=== PATIENT | male | born 1960 | race Caucasian/White ===

== ENCOUNTER 2021-10-23 23:11 | Inpatient (IN) | payer MEDICARE ==
[~2021-10-23] VITALS: Ht 170.2 cm; Wt 63.4 kg
[~2021-10-23 23:11] MED LIST: ASPIR-LOW81 MG PO; DEPO-TESTOS100 MG/ML IM; Depo-Provera; TOPROL XL 50MG50 MG PO
[2021-10-23 23:46] LABS: BASO # 0.1 K/mm3 (0.0-0.2); BASO % 0.7 % (0.0-2.0); EOS # 0.1 K/mm3 (0.0-0.7); EOS % 1.5 % (0.0-4.0); GRAN % 69.8 % (42.2-75.2); HEMOGLOBIN 12.8 g/dl (13.5-18.0); LYMPH # 1.3 K/mm3 (1.2-3.4); LYMPH % 17.4 % (20.0-51.0); MEAN CELL VOLUME 95 fl (80.0-100.0); MEAN CORPUSCULAR HEMOGLOBIN 33 pg (27-31); MEAN CORPUSCULAR HGB CONC 35 g/dl (33.0-37.0); MEAN PLATELET VOLUME 9.4 fl (7.4-10.4); MONO # 0.7 K/mm3 (0.1-0.6); MONO % 9.5 % (1.7-9.3); PLATELET COUNT 251 K/mm3 (130-400); RED BLOOD COUNT 3.83 M/mm3 (4.20-5.60)
[2021-10-23 23:48] LABS: HEMATOCRIT 36.3 % (42.0-52.0)
[2021-10-23 23:57] LABS: INR 1.1 (0.8-3.0); PROTHROMBIN TIME 12.7 SECONDS (9.7-12.8)
[2021-10-24] VITALS (13 sets, daily range): BP systolic 99–113; BP diastolic 56–70; PULSE 57–78; TEMP 97.5–99.4
[2021-10-24 00:05] LABS: ALBUMIN 3.9 gm/dL (3.4-4.8); BILIRUBIN,TOTAL 0.5 mg/dL (0.2-1.2); CALCIUM 8.5 mg/dL (8.4-10.2); CREATININE, serum 1.13 mg/dL (0.72-1.25); POTASSIUM 3.8 mmol/L (3.5-4.5); TOTAL PROTEIN 6.2 gm/dL (6.2-8.1)
--- NOTE | 2021-10-24 03:30 | NUR ---
RECEIVED REPORT FROM ED. ASSUMED CARE. PATIENT BROUGHT TO FLOOR AT 0200. PATIENT ALERT AND ORIENTED, BUT DISPLAYS SOME COGNITIIVE DEFICITS. PATIENT IS A POOR HISTORIAN AND COULD NOT RECALL SPECIFIC INFORMATION. PATIENT HERE FOR LEFT HIP AND LEFT CLAVICLE FRACTURE AFTER FALLING IN THE SHOWER AT HOME. INSERTED A 14 COUDET CATHETER AFTER ATTEMPTING A 16F MOTA. PATIENT TOLERATED WELL AND BAG IS HANGING TO DD. PATIENT ORIENTED TO ROOM AND IS RESTING IN BED WITH CALL LIGHT NEAR.
--- NOTE | 2021-10-24 10:24 | NUR ---
pt to surgery at this time with Paulina STOUT PACU.
--- NOTE | 2021-10-24 10:43 | NUR ---
SW worker met with patient to complete intake. Patient states that he lives with his Mike [phone] in [place] [facility]. was also present during intake and assisted with answering questions with patient's permission. Patient states that he does not utilize a walker nor a cane, and is independent with ADL's patient also states that he does not recieve any outside services such as HH. PCP is Dr. Green and pharmacy is [facility]. Patient states that if he feels better at DC his plan is to return to his home. states that she is appointed as guardian and conservetor, and will bring in documenation for faciity to copy and place in patient's chart. SW will continue to follow. DC plan: home
--- NOTE | 2021-10-24 13:13 | NUR ---
PT TO ROOM 327 PER BED WITH REPORT FROM MARI STOUT PACU @1250. PT IS DROWSEY, EASILY AROUSES TO VERBAL. LUNGS CTA, DRESSING TO LEFT HIP CDI WITH GUAZE AND TEGADERM DISTALLY AND PROXIMAL. SCDS AND TEDS PLACED BILATERALLY POST OP. VSS. AT BEDSIDE. IV FLUIDS PER PUMP.
[2021-10-24 15:08] LABS: MUCOUS Present (NOT PRESENT); PH 5 (5-8); SQUAMOUS EPITHELIAL None Seen /hpf (0-10); URINE APPEARANCE Cloudy (CLEAR/HAZY); URINE BACTERIA Rare /hpf (NONE SEEN); URINE BILIRUBIN Negative (NEGATIVE); URINE BLOOD 3+ (NEGATIVE); URINE CALCIUM OXALATE CRYSTAL Present (NOT PRESENT); URINE COLOR Yellow (YELLOW); URINE GLUCOSE Negative (NEGATIVE); URINE KETONE Negative (NEGATIVE); URINE LEUKOCYTE ESTERASE Trace (NEGATIVE); URINE NITRATE Negative (NEGATIVE); URINE PROTEIN(semi-quant) Negative (NEGATIVE); URINE RBC 20-50 /hpf (0-2); URINE UROBILINOGEN Negative (NEGATIVE)
[2021-10-24 15:42] LABS: COLLECTION METHOD CLEAN CATCH
--- NOTE | 2021-10-24 18:44 | NUR ---
MEDICATED WITH OXYCODONE 5MG PO FOR LEFT HIP PAIN. NOTED BRUISING TO LEFT SHOULDER. IS ALERT AND ORIENTED X3. DRSGS X3 TO LEFT HIP/OUTER LEG. IVF TO RT HAND, INFUSING WITHOUT REDNESS OR SWELLING. HAS TEDS AND SCDS ON. LEFT ARM IN SLING, GOOD CSM OF LEFT HAND.
[2021-10-25 03:31] VITALS: BP 108/61; PULSE 74; TEMP 99.1
--- NOTE | 2021-10-25 04:05 | NUR ---
PT HAS BEEN RESTING WELL. ASKING FOR TYLENOL, MEDICATED WITH SCHEDULED ES TYLENOL AND OXYCODONE 5MG PO NOW.
[2021-10-25] MEDS ORDERED: DEPO-PROVE150 MG/1 M IM (05:08)
[2021-10-25 06:58] VITALS: BP 107/59; PULSE 69; TEMP 99.5
[2021-10-25 07:33] LABS: CALCIUM 7.7 mg/dL (8.4-10.2); CREATININE, serum 0.82 mg/dL (0.72-1.25); POTASSIUM 3.9 mmol/L (3.5-4.5)
[2021-10-25 07:34] LABS: HEMOGLOBIN 9.6 g/dl (13.5-18.0)
--- NOTE | 2021-10-25 08:55 | NUR ---
PT UP TO YOUNG AND RETURNED TO BED WITH THERAPY. DRESSING TO LEFT HIP CDI. PAIN WELL CONTROLLED WITH PO MEDS. IV TO RFA. MOTA TO DD WITH CLEAR YELLOW URINE IN COLLECTION BAG.
[2021-10-25 11:12] VITALS: BP 103/63; PULSE 80; TEMP 99.2
--- NOTE | 2021-10-25 13:48 | NUR ---
SHUBHAM met with pt, son present who informed SW that mother is DPOA-HC and father can answer questions. SHUBHAM called DPAO-HC , Mike [phone]. She reports her is independent on all ADLS and does not use any DME. The pt enjoys walks. The pt however has a brain injury and cannot remember things. She reports he is safe to be home alone, however by his choice he will not open home door or answer phone calls. She reports he gets his medications from [facility] . SHUBHAM informed of PT michelle and they are recommending HH therapy. SW will leave a list of options from medicare.gov compare her in his room and she will go over the list and informed next SW on duty of her choice. DC: Home with HH therapy.
[2021-10-25 15:16] VITALS: BP 106/63; PULSE 61; TEMP 98.3
[2021-10-25 19:31] VITALS: BP 115/61; PULSE 103; TEMP 98.4
--- NOTE | 2021-10-25 21:24 | NUR ---
PT TAKES HS MEDS WITHOUT PROBLEM. PT HAD MOTA DC'D AT 1600, NO URGE TO VOID AT THIS TIME. PT IS ALERT AND ORIENTED X3, AT TIMES CONVERSATION RAMBLES. HAS INT TO RT HAND, FLUSHES WELL. HAS BRUISING TO LEFT SHOULDER, ARM IN SLING. HAS DRSGS X3 TO LEFT HIP/OUTER LEG, D/I. REPORTS PAIN 6/10, SCHEDULED ES TYLENOL GIVEN.
[2021-10-25 23:51] VITALS: BP 116/62; PULSE 103; TEMP 98.8
--- NOTE | 2021-10-26 03:00 | NUR ---
PT UP TO VOID, NO BM. BLADDER SCANNED AFTER RETURNING TO BED, 220CC IN BLADDER. PT REPORTS URINATING IN BATHROOM. GAIT STEADY WITH 1 ASSIST AND TULIO WALKER, DID REQUIRE 2 ASSIST FROM RISING FROM SHORT TOILET. BED ALARM ON.
[2021-10-26 03:26] VITALS: BP 132/69; PULSE 80; TEMP 97.9
[2021-10-26 06:58] LABS: HEMATOCRIT 26.3 % (42.0-52.0); HEMOGLOBIN 9.1 g/dl (13.5-18.0)
[2021-10-26 07:13] LABS: CALCIUM 8.3 mg/dL (8.4-10.2); CREATININE, serum 0.8 mg/dL (0.72-1.25); POTASSIUM 3.8 mmol/L (3.5-4.5)
[2021-10-26 07:24] VITALS: BP 108/61; PULSE 86; TEMP 98.9
--- NOTE | 2021-10-26 12:01 | NUR ---
First visit from the cake press operator helper. No needs right now.
[2021-10-26] MEDS ORDERED: TYLENOL 500MG500 MG PO (12:12)
[2021-10-26] MEDS ORDERED: ASPI325T6 PO (12:12)
[2021-10-26] MEDS ORDERED: OSCAL 500 TAB500 MG PO (12:13)
[2021-10-26] MEDS ORDERED: ROXICODONE 55 MG/TAB PO (12:13)
[2021-10-26] MEDS ORDERED: VITAMIN C500 MG PO (12:14)
[2021-10-26] MEDS ORDERED: MULTI VITAMINS1 TAB PO (12:14)
[2021-10-26] MEDS ORDERED: MIRALAX PA17 GM/Dose PO (12:14)
--- NOTE | 2021-10-26 12:28 | NUR ---
Optometric Aide followed up with patient's who advised she does not feel she can care for patient at home in his current condition. SW advised that Hospitalist put in a consult for IPR and patient's is agreeable to this. SHUBHAM collaborated with Annie, IPR Director who advised they can accept today. Discharge Plan: IPR
--- NOTE | 2021-10-26 15:31 | NUR ---
Patient transferring to [facility], he will be going into room 340, his is present and verbalized understanding of care, I will remain his primary nurse untill 190
== END 2021-10-26 15:32 | DRG 481 ==
LOC: COL.ER 23:11 → SURG 10-24 01:23
PROVIDERS: Internal Medicine; Orthopaedic Surgery; Physician Assistant; ADMIT Student in an Organized Health Care Education/Training Program
PROC: 0QS734Z Reposition Left Upper Femur with Internal Fixation Device, Percutaneous Approach (ICD-10-PCS; principal; 2021-10-24 10:30)
DX: S72.142A Displaced intertrochanteric fracture of left femur, initial encounter for closed fracture (principal); D62 Acute posthemorrhagic anemia; S42.022A Displaced fracture of shaft of left clavicle, initial encounter for closed fracture; I10 Essential (primary) hypertension; W18.30XA Fall on same level, unspecified, initial encounter; Y93.89 Activity, other specified; Y92.002 Bathroom of unspecified non-institutional (private) residence as the place of occurrence of the external cause; Z87.820 Personal history of traumatic brain injury; Z23 Encounter for immunization
CPT/HCPCS: 99223-AI; 99232-AI; 99239; C1713; J0690; J1100; J1170; J2250; J2270; J2370; J2405; J2704; J2795; J3010

== ENCOUNTER 2021-10-26 14:42 | Inpatient (IN) | payer MEDICARE ==
[~2021-10-26] VITALS: Ht 170.2 cm; Wt 65.2 kg
[~2021-10-26 14:42] MED LIST changes: +ASPI325T6 PO; +DEPO-PROVE150 MG/1 M IM; +MIRALAX PA17 GM/Dose PO; +MULTI VITAMINS1 TAB PO; +OSCAL 500 TAB500 MG PO; +ROXICODONE 55 MG/TAB PO; +TYLENOL 500MG500 MG PO; +VITAMIN C500 MG PO
[2021-10-26 18:57] VITALS: BP 118/65; PULSE 90; TEMP 98
--- NOTE | 2021-10-26 22:54 | NUR ---
Received report from day shift. Patient here for fracture of left femur and left clavicle. Patient alert and oriented x3. Patient complains of pain 10/10 and requests pain medication. Assessment performed. VSS. Patient in bed with call light near.
--- NOTE | 2021-10-27 01:18 | NUR ---
Patient ambulated to bathroom x2. Complains of pain /10, refuses pain medication. Will continue to [facility].
[2021-10-27 05:39] VITALS: BP 123/67; PULSE 89; TEMP 98.7
--- NOTE | 2021-10-27 15:11 | NUR ---
Director Food And Beverage met with patient to discuss discharge planning. Patient lives in [place] with his , Mike (ph#[phone]) [address] sees Dr. Arevalo for primary care. Patient obtains medications from [facility] and normally does not use any DME. Patient states he is normally independent with ADLS. SW will continue to follow up for discharge planning needs.
[2021-10-27 16:30] VITALS: BP 114/63; PULSE 80; TEMP 98.2
--- NOTE | 2021-10-27 19:50 | NUR ---
Pt. sitting up in chair. Pt. is A&OX3, assessment complete. Sling to lt. arm. Pt. reports pain to lt. hip at a 3 on pain scale. Pt. denies further needs, call light within reach.
[2021-10-28 05:54] VITALS: BP 124/54; PULSE 89; TEMP 98.1
--- NOTE | 2021-10-28 07:45 | NUR ---
SHIFT REPORT RECEIVED FROM HOSPITAL AIDES AND ASSISTANTS TEACHER RN JACE. PATIENT AWAKE AND SITTING IN BEDSIDE CHAIR WITH BOTH FEET ELEVATED. CALL LIGHT IS WITHIN HIS REACH. HE DENIES PAIN CURRENTLY. DENIES FURTHER NEEDS AT THIS TIME
--- NOTE | 2021-10-28 10:30 | NUR ---
Patient showered this morning with OT. Gauze/tegaderm dressing peeling away from incision left hip. Unable to find dsg change orders in paper chart or EMR. Called [facility], Dr. Vargas and left a voice mail with his nurse to call IPR
--- NOTE | 2021-10-28 13:45 | NUR ---
Hog Trader met with patient to review and provide copy of team conference notes. SW advised patient that tentative discharge date has been set for 11/05/21. Patient is agreeable to this. SHUBHAM contacted patient's , Mike to provide update. SHUBHAM also scheduled family meeting for Tuesday at 0930.
--- NOTE | 2021-10-28 18:14 | NUR ---
Callback received from [facility] nurse. Per jerrell Ayala to change dressing on POD#3. Jerrell to apply a simple dressing if still draining or bleeding. Patient with 3 left hip incisions. Medial incision was noted to have gauze that previously placed adhered to the incision. This nurse flushed incision with 30mL sterile water but was unable to remove the remnants of gauze dressing. Clean gauze dressing re-applied and reinforced with tegaderm. Will discuss with Dr. Mays tomorrow. Will pass on to occupational therapy assistant RN for monitoring of site overnight
[2021-10-28 18:17] VITALS: BP 115/70; PULSE 98; TEMP 98.7
--- NOTE | 2021-10-28 19:15 | NUR ---
RECEIVED CHANGE OF SHIFT REPORT FROM DAY SHIFT RN.
[2021-10-29 05:01] VITALS: BP 129/68; PULSE 100; TEMP 99.4
--- NOTE | 2021-10-29 07:18 | NUR ---
CHANGE OF SHIFT REPORT GIVEN TO DAY SHIFT RNMARLO.
--- NOTE | 2021-10-29 07:43 | NUR ---
Shift report received from warehouse shift supervisor RN. Patient resting in chair at bedside. He denies any pain or further needs at this time. Call light is within his reach
--- NOTE | 2021-10-29 14:40 | NUR ---
Admission QIM scores were reviewed by the team. Code of 3 chosen for oral hygiene was determined by team discussion to be the most usual performance for this patient during the assessment period. Code of 3 chosen for toilet hygiene was determined by team discussion to be the most usual performance for this patient during the assessment period. Code of 3 chosen for toileting transfers was determined by team discussion to be the most usual performance for this patient during the assessment period. Code of 3 chosen for shower/bathe self was determined by team discussion to be the most usual performance before interventions for this patient during the assessment period. Code of 3 chosen for upper body dressing was determined by team discussion to be the most usual performance before interventions for this patient during the assessment period. Code of 2 chosen for lower body dressing was determined by team discussion to be the most usual performance for this patient during the assessment period. Code of 3 chosen for sit to lying was determined by team discussion to be the most usual performance before interventions for this patient during the assessment period. Code of 2 chosen for lying to sitting on side of bed was determined by team discussion to be the most usual performance for this patient during the assessment period. Code of 3 for sit to stand was determined by team discussion to be the most usual performance for this patient during the assessment period. Code of 3 for chair/bed to chair transfers was determined by team discussion to be the most usual performance for this patient during the assessment period.--PD Milton
[2021-10-29 17:31] VITALS: BP 102/59; PULSE 87; TEMP 98
--- NOTE | 2021-10-29 19:51 | NUR ---
PT SITTING IN RECLINER. RT ARM SLING IN PLACE. DENIES PAIN. NO NEEDS AT THIS TIME. CALL LIGHT IN REACH. REMINDED PT TO USE CALL LIGHT IF NEEDS UP.
[2021-10-30 03:52] VITALS: BP 106/65; PULSE 86; TEMP 98.9
--- NOTE | 2021-10-30 14:26 | NUR ---
Coffee Bar Attendant participated in patient's family meeting which included patient's , Mike who is at bedside. KAYLYN Valencia Director opened the meeting followed up report from PT/OT/ST on patient's progress and discharge recommendations. Viktorandrés advised they have a good set up at home to include grab bars, a lift chair, and tub transfer bench. Mike plans to visit next week to observe OT session. SHUBHAM advised that tentative discharge date is set for 11/05/2021 and discharge recommendations are Home Health vs Outpatient therapy. SHUBHAM also advised she will assist with securing a randolph walker. SW to follow up on decision between OP and HH.
[2021-10-30 17:20] VITALS: BP 132/69; PULSE 96; TEMP 98.9
--- NOTE | 2021-10-30 21:16 | NUR ---
SITTING IN RECLINER. SEE MAR FOR PAIN MED GIVEN FOR LT SIDED PAIN LEVEL 10
--- NOTE | 2021-10-31 03:04 | NUR ---
BED ALARM SOUNDING. PT GETTING UP BY HIMSELF TO GO TO BR. REMINDED PT TO USE CALL LIGHT FOR ASSIST.
[2021-10-31 04:43] VITALS: BP 128/75; PULSE 74; TEMP 97.7
[2021-10-31 06:29] LABS: MEAN CELL VOLUME 98 fl (80.0-100.0); MEAN CORPUSCULAR HEMOGLOBIN 33 pg (27-31); MEAN CORPUSCULAR HGB CONC 34 g/dl (33.0-37.0); MEAN PLATELET VOLUME 8.5 fl (7.4-10.4); PLATELET COUNT 353 K/mm3 (130-400); RED BLOOD COUNT 3.02 M/mm3 (4.20-5.60); REDCELL DISTRIBUTION WIDTH-CV 12.5 % (11.5-14.5)
[2021-10-31 06:30] LABS: HEMATOCRIT 29.6 % (42.0-52.0)
[2021-10-31 08:03] LABS: EOSINOPHIL 5 % (0-4); LYMPHOCYTE 11 % (20.0-51.0); METAMYELOCYTE 1 % (0-0); NEUTROPHILS 71 % (42.0-75.2); PLATELET ESTIMATE NORMAL (NORMAL)
--- NOTE | 2021-10-31 14:26 | NUR ---
PATIENT STABLE THROUGH OUT THIS SHIFT. FOOD AND FLUID INTAKE VERY GOOD. REQUIRES PAIN MEDICATIONS RARELY. COMPLETES THERAPY WITH NO ISSUES. ABLE TO AMBULATE WELL ON OWN. CONTINENT.
[2021-10-31 18:24] VITALS: BP 125/66; PULSE 85; TEMP 98.6
--- NOTE | 2021-10-31 21:15 | NUR ---
PT SITTING IN RECLINER. DENIES NEED FOR PAIN MED. NO NEEDS AT THIS TIME. SPEECH GARBLED AND VERY FAST AT TIMES. OCCATIONALLY IMPULSIVE. CHAIR ALARM SET. CALL LIGHT IN REACH.
[2021-11-01 05:15] VITALS: BP 134/87; PULSE 103; TEMP 98.4
--- NOTE | 2021-11-01 12:26 | NUR ---
PATIENT RESTING IN CHAIR. NO COMPLAINTS AT THIS TIME. DENIES PAIN THROUGHOUT THE DAY. STATES HE DOESN'T NEED ANYTHING AT THIS TIME. WILL COMTINUE TO MONITOR.
[2021-11-01 15:51] VITALS: BP 107/75; PULSE 86; TEMP 98.6
--- NOTE | 2021-11-01 18:26 | NUR ---
PATIENT HAS BEEN RESTING IN CHAIR ALL DAY. PATIENT HAS BEEN UP TO RESTROOM SEVERAL TIMES TODAY. PATIENT HAS CONSUMED ALL OF HIS MEALS WITHOUT ANY NAUSEA OR ISSUES. PT HAS HAD LITTLE TO NO PAIN AND REQUESTED NO PAIN MEDICATIONS TODAY. PATIENT HAS NO COMPLAINTS OR REQUESTS AT THIS TIME.
--- NOTE | 2021-11-01 21:00 | NUR ---
PT BRETIN RECLINER. DENIES NEEDS .
[2021-11-02 05:24] VITALS: BP 129/75; PULSE 88; TEMP 98.5
--- NOTE | 2021-11-02 06:14 | NUR ---
PT SITTING UP IN RECLINER READY FOR THE MORNING. NO NEEDS NOTED.
--- NOTE | 2021-11-02 08:15 | NUR ---
ASSISTED PT TO BATHROOM AND BACK TO CHAIR. PT SITTING UP IN CHAIR TO EAT BREAKFAST. PT DENIES ANY PAIN OR NEEDS AT THIS TIME. CALL LIGHT IS WITHIN REACH.
--- NOTE | 2021-11-02 15:43 | NUR ---
Assembler Body contacted patient's , Mike to review discharge plan. SW reviewed options for DME and discharge services. Mike believes outpatient therapy would be more beneficial for patient and would like it set up at [facility] on [address]. Mike is also agreeable to have randolph walker ordered from [facility]. SW followed up with patient who is agreeable to the above plan.
[2021-11-02 18:11] VITALS: BP 127/65; PULSE 97; TEMP 97.9
--- NOTE | 2021-11-02 18:34 | NUR ---
PT UP IN CHAIR. PT STATES NO NEEDS AT THIS TIME OR PAIN. CALL LIGHT IS WITHIN REACH.
--- NOTE | 2021-11-02 19:07 | NUR ---
RECEIVED CHANGE OF SHIFT REPORT FROM DAY SHIFT RN. PATIENT UP IN CHAIR WITH EXIT ALARM ON AND CALL LIGHT WITHIN REACH. DENIES ANY NEEDS AT TIME OF REPORT.
[2021-11-03 04:58] VITALS: BP 121/67; PULSE 83; TEMP 98.6
--- NOTE | 2021-11-03 06:47 | NUR ---
CHANGE OF SHIFT REPORT GIVEN TO DAY SHIFT RNs, BRAD.
--- NOTE | 2021-11-03 07:36 | NUR ---
Shift report received from retail shift supervisor RN. Patient is awake and sitting in recliner chair at bedside. Call light is within his reach. He denies further needs at this time
--- NOTE | 2021-11-03 09:12 | NUR ---
Patient pressed call button for assistance with shaving. SBA provided while patient up to sink in room to shave. Lt. hip inicisions x3 remain without drainage/redness. Medial Lt. hip incision remains with gauze remnants that appear to be adhered to incision from ?possible skin glue?.
--- NOTE | 2021-11-03 09:27 | NUR ---
Patient preparing for group therapy this morning. Has completed his morning ADL's independently with SBA. Dr. Mays in to see pt. Lt. hip incision evaluated by Dr. Mays - okay to leave as is. Continue to monitor and gauze should fall off on its own via bathing/showering
--- NOTE | 2021-11-03 15:13 | NUR ---
Patient reports that he had 2 bowel movements yesterday
[2021-11-03 16:29] VITALS: BP 124/73; PULSE 84; TEMP 98.7
--- NOTE | 2021-11-03 19:12 | NUR ---
RECEIVED CHANGE OF SHIFT REPORT FROM DAY SHIFT RNs.
--- NOTE | 2021-11-03 23:32 | NUR ---
PATIENT SLEEPING, DOES NOT WAKE WHEN ROOM ENTERED BY NURSING ON ROUNDS. BREATHING NONLABORED AND EVEN. BED EXIT ALARM ON WITH CALL LIGHT WITHIN REACH.
[2021-11-04 04:51] VITALS: BP 121/68; PULSE 78; TEMP 98.5
--- NOTE | 2021-11-04 07:11 | NUR ---
CHANGE OF SHIFT REPORT GIVEN TO DAY SHIFT RNs, BRAD.
--- NOTE | 2021-11-04 07:21 | NUR ---
Shift report received from traffic signal technician RN. Patient is up to chair at his bedside. He denies any needs at this time. Denies pain. Call light is within his reach
--- NOTE | 2021-11-04 08:37 | NUR ---
Patient sitting up in chair at bedside. He denies having any pain. He reports having 2 BM's yesterday. He is awaiting the arrival of the speech therapist. He denies any needs at this time. Call light is within his reach
--- NOTE | 2021-11-04 16:36 | NUR ---
Fall Intern met with patient to review discharge plan. Patient is set to discharge tomorrow. SHUBHAM reviewed IM form with patient who verbalized understanding and had his , Mike provide signature. SW provided copy to patient and placed original in chart. SHUBHAM contacted [facility] and faxed referral/order for hemiwalker, which was delivered to patient's room. SHUBHAM collaborated with RN on what time patient will discharge tomorrow. RN advised they will try to get patient out early due to inclement weather and have here by 0900 if possible. SHUBHAM reviewed this with Mike who advised she would be here at 0900.
[2021-11-04 18:00] VITALS: BP 113/60; PULSE 100; TEMP 98.2
--- NOTE | 2021-11-04 19:06 | NUR ---
RECEIVED CHANGE OF SHIFT REPORT FROM DAY SHIFT RN.
--- NOTE | 2021-11-04 21:54 | NUR ---
AMBULATES WITH HEMIWALKER WITH NO REPORTED PROBLEMS OR CONCERNS. SLING TO RUE CONTINUES. DENIES ANY NEED FOR PAIN MEDS AT THIS TIME. DENIES CHEST PAIN/SOA CURRENTLY.
[2021-11-05 05:49] VITALS: BP 134/70; PULSE 100; TEMP 98.1
--- NOTE | 2021-11-05 07:07 | NUR ---
Shift report received from montessori teacher RN. Patient awake and sitting in chair at bedside. Call light is within his reach. He denies any needs at this time
--- NOTE | 2021-11-05 07:34 | NUR ---
CHANGE OF SHIFT REPORT GIVEN TO DAY SHIFT RNs, BRAD.
[2021-11-05] MEDS ORDERED: ASPI325T6 PO (09:27)
[2021-11-05] MEDS ORDERED: FERROUS SU325 MG/TAB PO (09:27)
[2021-11-05] MEDS ORDERED: NORCO 325 MG-51 TAB PO (09:28)
--- NOTE | 2021-11-05 10:22 | NUR ---
Discussed discharge paperwork with patient and the importance of keeping all follow up appointments or to reschedule them. Personal items were packed by spouse and have been removed from the room to include cell phone and legal billing clerk. Patient was taken down via wheelchair and seatbelted in vehicle for ride home.
--- NOTE | 2021-11-05 11:31 | NUR ---
Account Executive Trainee contacted [facility] and scheduled patient's first appointment for 11/10/21 at 1600. SW faxed referral/discharge orders.
--- NOTE | 2021-11-06 13:22 | NUR ---
Discharge QIM scores were reviewed by the team. Code of 6 chosen for toileting transfers was determined by team discussion to be the most usual performance for this patient during the assessment period. Code of 5 chosen for lower body dressing was determined by team discussion to be the most usual performance for this patient during the assessment period. Code of 6 for sit to stand was determined by team discussion to be the most usual performance for this patient during the assessment period. Code of 6 for chair/bed to chair transfers was determined by team discussion to be the most usual performance for this patient during the assessment period. Code of 6 chosen for walk 10 feet was determined by team discussion to be the most usual performance for this patient during the assessment period. Code of 6 chosen for walk 50 feet w/ 2 turns was determined by team discussion to be the most usual performance for this patient during the assessment period.--Annie Jordan, PD
== END 2021-11-05 10:27 | disposition home or self-care (01) | DRG 561 ==
PROVIDERS: Physician Assistant; ADMIT Physical Medicine & Rehabilitation Sports Medicine
DX: S72.142D Displaced intertrochanteric fracture of left femur, subsequent encounter for closed fracture with routine healing (principal); S42.032D Displaced fracture of lateral end of left clavicle, subsequent encounter for fracture with routine healing; R26.89 Other abnormalities of gait and mobility; I10 Essential (primary) hypertension; D64.89 Other specified anemias; K59.00 Constipation, unspecified; W18.2XXD Fall in (into) shower or empty bathtub, subsequent encounter; Y92.002 Bathroom of unspecified non-institutional (private) residence as the place of occurrence of the external cause; Z79.82 Long term (current) use of aspirin; Z87.820 Personal history of traumatic brain injury; Z79.899 Other long term (current) drug therapy; Z79.891 Long term (current) use of opiate analgesic; Z73.6 Limitation of activities due to disability; R82.90 Unspecified abnormal findings in urine
CPT/HCPCS: 99222; 99231-AI; 99232-AI; A9284

== ENCOUNTER 2021-11-25 13:30 | Outpatient (RCR) | payer MEDICARE ==
[~2021-11-25 13:30] MED LIST changes: +FERROUS SU325 MG/TAB PO; +NORCO 325 MG-51 TAB PO
== END 2021-11-26 | disposition home or self-care (01) ==
LOC: WSPT
DX: S42.002D Fracture of unspecified part of left clavicle, subsequent encounter for fracture with routine healing (principal); Z98.890 Other specified postprocedural states

== ENCOUNTER 2021-12-25 13:30 | Outpatient (RCR) | payer MEDICARE | END 2021-12-26 | disposition home or self-care (01) | LOC: WSPT | DX: S42.002A Fracture of unspecified part of left clavicle, initial encounter for closed fracture (principal); Z98.890 Other specified postprocedural states ==

== ENCOUNTER 2022-01-15 13:30 | Outpatient (RCR) | payer MEDICARE | END 2022-01-18 07:50 | disposition home or self-care (01) | LOC: WSPT 13:30 | DX: S42.002A Fracture of unspecified part of left clavicle, initial encounter for closed fracture (principal); Z98.890 Other specified postprocedural states ==